=== PATIENT | male | born 1935 | race Caucasian/White ===

== ENCOUNTER → 2016-08-02 06:35 | Day surgery (SDC) | payer OTHER ==
--- NOTE | 2016-07-28 17:10 | HP ---
PREOPERATIVE HISTORY AND PHYSICAL: DATE OF SURGERY/ADMISSION: 08/02/16 [facility] DATE OF OFFICE VISIT/ENCOUNTER: 07/27/16 ATTENDING SURGEON: Rhianna Medellin MD. PROCEDURE: Left elbow olecranon bursectomy. CHIEF COMPLAINT: Left elbow chronic drainage. HISTORY OF PRESENT ILLNESS: This is an 81-year-old male who sustained injury to his left elbow in February 2016 when he fell while he was loading his bike into a van. He has not had any pain in his elbow nor has he lost any motion, but he has had a chronic draining wound for the past 6 months. He generally covers it with a Band-Aid. The bursa has been drained 3 times by his primary care doctor. He has not had any associated infection with this. He denies any numbness or tingling associated with the left upper extremity. After evaluation by and discussion with Dr. Medellin, the patient has agreed to proceed with surgical intervention at this point in the form of a left elbow olecranon bursectomy. PAST MEDICAL HISTORY: 1. Asthma. 2. History of psoriasis. 3. History of prostate cancer. 4. Hypertension. 5. Diabetes, which is diet controlled. 6. Polymyalgia rheumatica. 7. History of pneumonia approximately one month ago. PAST SURGICAL HISTORY: 1. Prostatectomy. 2. Bilateral eye lens implants. 3. Several minor dermatologic surgeries. 4. Left total hip arthroplasty. CURRENT MEDICATIONS: 1. Advair Diskus b.i.d. p.r.n. 2. Aspirin 81 mg daily. 3. Calcipotriene/betamethasone dipropionate applied p.r.n. 4. Vitamin D3 one tab daily. 5. Omeprazole magnesium 40 mg 1 tab daily. 6. Ibuprofen 200 mg 2 tabs daily p.r.n. 7. Losartan potassium/hydrochlorothiazide 50 mg 1 tab daily. 8. Stendra 200 mg p.r.n. ALLERGIES: No known drug allergies. FAMILY MEDICAL HISTORY: Colorectal cancer. 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 He is a former smoker. He quit at age 56. Prior to that he smoked a pack per day for 30 years. He denies recreational drug use. He does admit to alcohol intake on regular occasion approximately 3 to 4 beers daily. REVIEW OF SYSTEMS: General: Negative for fevers, chills, or night sweats. No known anesthesia problems. HEENT: Negative for headache, lightheadedness or syncopal episodes. Integumentary: Positive for psoriasis. Negative for abrasions or open wounds. Cardiothoracic: Positive for hypertension. Negative for chest pain, palpitations or edema. Pulmonary: Positive for asthma. Negative for shortness of breath with exertion, chronic cough, or COPD. GI: Positive for GERD. Negative for nausea, vomiting, diarrhea or constipation. : Negative for nocturia. Positive for urinary frequency. Negative for urgency, history of UTIs or kidney problems. Musculoskeletal: Positive for current complaints, otherwise negative. Neurological: Negative for paresthesias, numbness, history of seizure, stroke, or epilepsy. Endocrine : Positive for diet-controlled diabetes. Negative for thyroid issues. Hematologic: Positive for easy bruising secondary to 81 mg of aspirin daily. Negative for anemia, excessive bleeding or history of DVT. Infectious Disease: Negative for history of MRSA, hepatitis C, or HIV. PHYSICAL EXAMINATION GENERAL: Well-developed, well-nourished, 81-year-old male, in no acute distress. VITAL SIGNS: Height 5 feet 8 inches, weight 186 pounds, pulse rate 72, blood pressure 130/80. HEENT: Normocephalic, atraumatic. Pupils are equal, round, and reactive to light and accommodation. Extraocular movements are intact. Throat is clear. NECK: Supple. No palpable lymph nodes. PULMONARY: Lungs are clear to auscultation bilaterally. No wheezes, rales, or rhonchi. CARDIOTHORACIC: Regular rate and rhythm. S1, S2. No murmurs, rubs, or gallops. No edema. ABDOMEN: Positive bowel sounds, soft, nontender. NEUROLOGIC: Alert and oriented x3. Cranial nerves II through XII are intact. Sensation is intact to light touch. MUSCULOSKELETAL: On exam of his left elbow, he has an inflamed olecranon bursa with a small draining wound that drains clear serous fluid. There is no sign of infection. The skin is otherwise intact. He has full range of motion at the elbow in flexion, extension, pronation, and supination. Neurovascular function is intact. IMAGING STUDIES: X-rays of the left elbow AP, lateral, and 2 oblique show no bony abnormality. IMPRESSION: Persistent draining bursitis of left elbow. PLAN: The patient is scheduled to undergo a left elbow olecranon bursectomy with Dr. Medellin on 08/02/16. He will return to the office in 10 to 14 days postop for followup and suture removal. A prescription for Ultracet was e- scribed to the patient's pharmacy for postoperative pain management. JAMES ASHBY [id number]/[facility] #: [id number] N[place]
[~2016-08-02 06:35] MED LIST: Acetaminophen TAB* 325 MG PO PRN; Buffered Lidocaine 1% SYRIN* 3 ML/SYR SYRINGE INTRADERM ONE; Bupivacaine 0.5% SDV PF* 30 ML VIAL ONE; DiMENhydriNATE IV* 50 MG/ML VIAL IV PUSH PRN; Famotidine IV* 10 MG/ML 2 ML (20 mg) ONE; HYDROcodone/ACETAMIN 5-325 MG* 1 TAB PO PRN; Ketorolac INJ* 30 MG/ML 1 ML VIAL ONE; Levalbuterol 0.63MG/3ML NEB INH PRN; Lidocaine 1% INJ* 10 MG/ML 30 ML SDV ONE; Lidocaine 2% PF* 5 ML VIAL ONE; Midazolam* 1 MG/ML 2 ML VIAL (2 MG) ONE; Ondansetron INJ* 2 MG/ML VIAL IV PRN; Propofol* 10 MG/ML 20 ML BTL IV PUSH ONE; ceFAZolin 2 GM PREMIX(*) 2 GM/50 ML BAG IVPB ONE; fentaNYL* 50 MCG/ML 2 ML VIAL (100 MCG VIAL) ONE
[2016-08-02 08:46] VITALS: BP 126/67
--- NOTE | 2016-08-03 00:25 | OP ---
DATE OF OPERATION: 08/02/16 [facility] DATE OF : 31 SURGEON: Rhianna Medellin MD GEOTECHNICAL ENGINEER: JAMES Fuentes. ANESTHESIOLOGIST: Dr. Carver ANESTHESIA: Local MAC. PRE-OP DIAGNOSIS: Left olecranon bursitis with draining sinus. POST-OP DIAGNOSIS: Left olecranon bursitis with draining sinus. OPERATIVE PROCEDURE: Left olecranon bursectomy. INDICATIONS: Anam is an 81-year-old man who fell and injured his left elbow about 6 months ago. He has a persistent draining area at the posterior aspect of his elbow. He presents for olecranon bursectomy on the left. ESTIMATED BLOOD LOSS: Zero. TOURNIQUET TIME: 20 minutes. DESCRIPTION OF PROCEDURE: The patient was brought to the operating room and was given a sedation anesthetic and local infiltration of 10 cc of 1% plain lidocaine in the area of his left elbow. The skin of his left upper extremity was prepped and draped in the usual sterile fashion. The upper extremity was exsanguinated, and the tourniquet elevated to 250 mmHg. A longitudinal incision was made on the posterior aspect of the elbow within the lips of the skin around the draining sinus. The olecranon bursa was carefully dissected away from the skin and the underlying triceps tendon and olecranon was completely removed and then the wound copiously irrigated with saline. Cultures were obtained also from the draining fluid. The subcutaneous tissue was closed with 2-0 Polysorb suture over a Sandi drain. The skin edges were reapproximated with 4-0 nylon suture. The wound was dressed with Xeroform, 4x4 , Webril and ABD and an Mauricio wrap. The patient tolerated the procedure well and was brought to the recovery room in good condition. [id number]/[facility] #: [id number] [facility]
== END | disposition home or self-care (01) ==
LOC: OREAST 06:35
PROVIDERS: ATTEND Orthopaedic Surgery
DX: M71.522 Other bursitis, not elsewhere classified, left elbow (principal); E11.9 Type 2 diabetes mellitus without complications; I10 Essential (primary) hypertension; M35.3 Polymyalgia rheumatica; Z85.46 Personal history of malignant neoplasm of prostate
CPT/HCPCS: 87070; 87073; 87205; 88304; J0690; J1885; J2001; J2250; J2704; J3010

== ENCOUNTER 2021-01-28 06:43 | Inpatient (IN) ==
[2021-01-28] MEDS ORDERED: Iohexol 300 (CONTRAST) 10 ML SDV ONE (07:57)
[2021-01-28] MEDS ORDERED: Lidocaine 1% VIAL 10 MG/ML VIAL ONE (07:57)
[2021-01-28] MEDS ORDERED: ceFAZolin 2 GM PREMIX 2 GM/50 ML BAG IVPB ONE (08:00)
[2021-01-28] MEDS ORDERED: Midazolam 5 mg/5 ml VIAL 1 mg/ml 5 ml VIAL (5 mg) ONE ×2 (08:30→09:05)
[2021-01-28] MEDS ORDERED: Flumazenil 0.5 mg/5 ml 0.1 MG/ML 5 ml VIAL ONE (08:30)
[2021-01-28] MEDS ORDERED: fentaNYL 100 mcg/2 ml 50 MCG/ML VIAL ONE (08:30)
[2021-01-28] MEDS ORDERED: Naloxone 0.4 mg VIAL 0.4 mg/ml 1 ml VIAL ONE (08:31)
[2021-01-28] MEDS: Mometasone/Formoter 100/5 MDI INH SCH (19:40)
[2021-01-29] MEDS: Aspirin EC 81 mg TAB.EC (enteric coated) PO SCH (07:55)
[2021-01-29] MEDS: Mometasone/Formoter 100/5 MDI INH SCH ×2 (08:27→20:14)
[2021-01-30 07:27] VITALS: BP 140/60
[2021-01-30] MEDS: Mometasone/Formoter 100/5 MDI INH SCH (07:30)
[2021-01-30] MEDS: Aspirin EC 81 mg TAB.EC (enteric coated) PO SCH (09:22)
== END 2021-01-30 10:30 | disposition home or self-care (01) | DRG 243 ==
LOC: CHICATH 06:43 → MEDTELE 06:43
PROVIDERS: ADMIT Specialist; ATTEND Specialist